=== PATIENT | female | born 1950 | race Caucasian/White ===

== ENCOUNTER 2017-04-14 17:01 | Inpatient (IN) | payer MEDICARE, MEDICAID ==
[~2017-04-14] VITALS: Ht 172.7 cm; Wt 114.0 kg
[2017-04-14] MEDS ORDERED: SODIUM CHLORIDE 0.9% 1,000 ML IV ONE (18:33)
[2017-04-14 19:35] LABS: Basophils # (auto) 0.1 uL; Eosinophils # (auto) 0.3 uL; Eosinophils % (auto) 2.4 % (0.0-7.0); Lymphocytes # (auto) 1.9 uL; Monocytes # (auto) 0.6 uL; Nucleated Red Blood Cells % 0.1 %; Red Cell Distribution Width 14.1 % (11.8-14.3)
[2017-04-14 19:42] LABS: Basophils % (auto) 0.8 % (0.0-2.0); Hematocrit 42.5 % (36.0-46.0); Hemoglobin 13.7 g/dL (12.2-16.2); Lymphocytes % (auto) 14.9 % (10.0-50.0); Mean Corpuscular Hgb Conc. 32.4 g/dL (32.0-36.0); Mean Corpuscular Volume 95.9 fL (80.0-100.0); Monocytes % (auto) 4.4 % (0.0-12.0); Neutrophils # (auto) 9.8 uL; Neutrophils % (auto) 77.5 % (37.0-80.0); Platelet Count (auto) 315 10^3/uL (140-450); Red Blood Cells 4.43 10^6/uL (4.0-5.20); White Blood Cell 12.7 10^3/uL (4.4-10.8)
[2017-04-14 19:55] LABS: Alanine Aminotransferase 29 U/L (13-56); Albumin 3.4 g/dL (3.4-5.0); Alkaline Phosphatase 82 U/L (45-117); Anion Gap 10 (5-15); Aspartate Aminotransferase 15 U/L (15-37); Bilirubin, Total 0.6 mg/dL (0.2-1.0); Blood Urea Nitrogen 18 mg/dL (7-18); Calcium 8.3 mg/dL (8.5-10.1); Carbon Dioxide 26 mmol/L (21-32); Chloride 103 mmol/L (98-107); GFR African American 80 mL/min; GFR Non-African American 66 mL/min; Glucose 188 mg/dL (74-106); Magnesium 1.8 mg/dL (1.6-2.6); Potassium 4.3 mmol/L (3.5-5.1); Sodium 139 mmol/L (136-145); Total Protein 7.4 g/dL (6.4-8.2)
[2017-04-14] MEDS ORDERED: LORazepam 2MG/ML-1ML VIAL IV ONE (20:30)
[2017-04-14] MEDS ORDERED: LEVOFLOXACIN 500MG 100 ML IV ONE (20:45)
[2017-04-14 21:38] LABS: Lactic Acid w/Reflex 2.3 mmol/L (0.4-2.0)
[2017-04-14] MEDS ORDERED: LACTULOSE 20Gm/30ML SOLN PO PRN (21:45)
[2017-04-14] MEDS ORDERED: ONDANSETRON HCL 4 MG/2 ML VIAL IV PRN ×2 (21:45)
[2017-04-14] MEDS: traZODone HCL 50 MG TAB PO SCH (22:00)
[2017-04-14] MEDS: ATORVASTATIN 20 MG TAB PO SCH (22:00)
[2017-04-14] MEDS: METOPROLOL TARTRATE 50 MG TAB PO SCH (22:00)
[2017-04-14 22:20] LABS: Cholesterol 145 mg/dL (< 200); HDL Cholesterol 39 mg/dL (40-59); LDL Cholesterol 100 mg/dL (< 100); Triglycerides 112 mg/dL (< 150)
[2017-04-14 23:28] LABS: Urine Bacteria NONE SEEN /hpf (None Seen); Urine Blood 1+ /uL (Negative); Urine Mucus FEW (None Seen); Urine Specific Gravity 1.023 (1.001-1.035); Urine WBC <1 /hpf (0 - 5)
[2017-04-14 23:51] LABS: INR 0.96 (0.9-1.15); Partial Thromboplastin Time 28.8 sec (22.64-33.71); Prothrombin Time 10.5 sec (9.37-12.3)
[2017-04-15] MEDS: AZITHROMYCIN 500MG/ 250ML 250 ML IV SCH (02:25)
[2017-04-15] MEDS: clonazePAM 0.5 MG TAB PO PRN (02:27)
[2017-04-15] MEDS: HYDROcodone-ACET 5/325MG TAB PO PRN ×2 (07:34→21:49)
[2017-04-15 08:40] LABS: Basophils # (auto) 0.1 uL; Basophils % (auto) 0.6 % (0.0-2.0); Eosinophils # (auto) 0.1 uL; Eosinophils % (auto) 0.4 % (0.0-7.0); Hematocrit 39.8 % (36.0-46.0); Hemoglobin 13.4 g/dL (12.2-16.2); Lymphocytes # (auto) 2.1 uL; Lymphocytes % (auto) 17.4 % (10.0-50.0); Mean Corpuscular Hemoglobin 31.8 pg (28.0-32.0); Mean Corpuscular Hgb Conc. 33.6 g/dL (32.0-36.0); Mean Corpuscular Volume 94.6 fL (80.0-100.0); Monocytes # (auto) 0.8 uL; Monocytes % (auto) 6.7 % (0.0-12.0); Neutrophils % (auto) 74.9 % (37.0-80.0); Nucleated Red Blood Cells % 0.1 %; Platelet Count (auto) 301 10^3/uL (140-450); Red Blood Cells 4.21 10^6/uL (4.0-5.20)
[2017-04-15 08:58] LABS: BUN/Creatinine Ratio 25.7; Calcium 8.3 mg/dL (8.5-10.1); Potassium 3.7 mmol/L (3.5-5.1)
[2017-04-15 09:00] VITALS: BP 125/62
[2017-04-15] MEDS ORDERED: HYDR-392 PO (09:59)
[2017-04-15] MEDS ORDERED: METO-5 PO (09:59)
[2017-04-15] MEDS ORDERED: LEVO125T7 PO (09:59)
[2017-04-15] MEDS ORDERED: METF-370 PO (09:59)
[2017-04-15] MEDS: FLUoxetine HCL 20 MG CAP PO SCH (10:00)
[2017-04-15] MEDS: ENOXAPARIN SOD 40 MG/0.4 ML SYRINGE SC SCH (10:32)
[2017-04-15] MEDS: ASPirin 81 mg TAB PO SCH (10:32)
[2017-04-15] MEDS: METOPROLOL TARTRATE 50 MG TAB PO SCH ×2 (10:33→21:49)
[2017-04-15] MEDS: ACETAMINOPHEN 500 MG TAB PO PRN (10:33)
[2017-04-15] MEDS: lamoTRIgine 25 MG TAB PO SCH (10:33)
[2017-04-15 13:00] VITALS: BP 103/53
[2017-04-15] MEDS ORDERED: LORazepam 2MG/ML-1ML VIAL IV ONE (13:45)
[2017-04-15] MEDS ORDERED: DEXTROSE (50%) 50ML SYRG IV PRN (14:00)
[2017-04-15] MEDS ORDERED: LEVOFLOXACIN 750MG 150 ML IV ONE (14:00)
[2017-04-15] MEDS: LEVOTHYROXINE SODIUM 50 MCG TAB PO SCH (14:15)
[2017-04-15 16:50] VITALS: BP 115/64
[2017-04-15] MEDS: InsuLIN REG 1unit/0.01ml Soln (100units/ml) SC SCH ×2 (17:00→21:50)
[2017-04-15] MEDS ORDERED: ALBUTEROL SULF 2.5 MG/0.5ML(0.5%) NEB SOLN NEB PRN (18:15)
[2017-04-15] MEDS: ACCU-CHEK COMFORT CURVE STRIP VI SCH ×2 (18:25→21:50)
[2017-04-15 19:36] VITALS: BP 115/64
[2017-04-15] MEDS: ALBUTEROL SULF 2.5 MG/0.5ML(0.5%) NEB SOLN NEB SCH (21:48)
[2017-04-15] MEDS: ATORVASTATIN 20 MG TAB PO SCH (21:48)
[2017-04-15] MEDS: traZODone HCL 50 MG TAB PO SCH (21:48)
[2017-04-15 22:00] VITALS: BP 103/49
[2017-04-16] VITALS (11 sets, daily range): BP systolic 90–119; BP diastolic 43–62
[2017-04-16] MEDS: AZITHROMYCIN 500MG/ 250ML 250 ML IV SCH (01:50)
[2017-04-16 05:31] LABS: Basophils # (auto) 0.1 uL; Basophils % (auto) 0.9 % (0.0-2.0); Eosinophils # (auto) 0.1 uL; Eosinophils % (auto) 0.9 % (0.0-7.0); Hemoglobin 13.4 g/dL (12.2-16.2); Lymphocytes # (auto) 2.5 uL; Lymphocytes % (auto) 17.8 % (10.0-50.0); Mean Corpuscular Hemoglobin 31.9 pg (28.0-32.0); Mean Corpuscular Hgb Conc. 33.5 g/dL (32.0-36.0); Mean Corpuscular Volume 95.2 fL (80.0-100.0); Monocytes # (auto) 1.3 uL; Monocytes % (auto) 9.5 % (0.0-12.0); Neutrophils % (auto) 70.9 % (37.0-80.0); Platelet Count (auto) 214 10^3/uL (140-450); Red Cell Distribution Width 14.2 % (11.8-14.3); White Blood Cell 14.1 10^3/uL (4.4-10.8)
[2017-04-16 05:55] LABS: BUN/Creatinine Ratio 19.1; Magnesium 2.1 mg/dL (1.6-2.6); Potassium 3.7 mmol/L (3.5-5.1)
[2017-04-16] MEDS: ACCU-CHEK COMFORT CURVE STRIP VI SCH ×4 (06:01→22:06)
[2017-04-16] MEDS: LEVOTHYROXINE SODIUM 50 MCG TAB PO SCH (06:01)
[2017-04-16] MEDS: InsuLIN REG 1unit/0.01ml Soln (100units/ml) SC SCH ×4 (06:01→22:07)
[2017-04-16] MEDS: ALBUTEROL SULF 2.5 MG/0.5ML(0.5%) NEB SOLN NEB SCH ×3 (06:53→22:32)
[2017-04-16] MEDS: ACETAMINOPHEN 500 MG TAB PO PRN ×2 (08:04→22:00)
[2017-04-16] MEDS: LEVOFLOXACIN 750MG 150 ML IV SCH (10:19)
[2017-04-16] MEDS: FLUoxetine HCL 20 MG CAP PO SCH (10:19)
[2017-04-16] MEDS: METOPROLOL TARTRATE 50 MG TAB PO SCH ×2 (10:20→22:07)
[2017-04-16] MEDS: ASPirin 81 mg TAB PO SCH (10:20)
[2017-04-16] MEDS: lamoTRIgine 25 MG TAB PO SCH (10:20)
[2017-04-16] MEDS: ENOXAPARIN SOD 40 MG/0.4 ML SYRINGE SC SCH (10:20)
[2017-04-16] MEDS: clonazePAM 0.5 MG TAB PO PRN (11:30)
[2017-04-16] MEDS: HYDROcodone-ACET 5/325MG TAB PO PRN (19:00)
[2017-04-16] MEDS: ATORVASTATIN 20 MG TAB PO SCH (22:06)
[2017-04-16] MEDS: traZODone HCL 50 MG TAB PO SCH (22:06)
[2017-04-17] VITALS (37 sets, daily range): BP systolic 95–133; BP diastolic 45–71
[2017-04-17 04:40] LABS: Basophils # (auto) 0 uL; Basophils % (auto) 0.3 % (0.0-2.0); Eosinophils # (auto) 0.1 uL; Eosinophils % (auto) 0.7 % (0.0-7.0); Hematocrit 38.6 % (36.0-46.0); Hemoglobin 12.8 g/dL (12.2-16.2); Lymphocytes # (auto) 2.3 uL; Lymphocytes % (auto) 18.4 % (10.0-50.0); Mean Corpuscular Hemoglobin 31.8 pg (28.0-32.0); Mean Corpuscular Hgb Conc. 33.2 g/dL (32.0-36.0); Mean Corpuscular Volume 95.7 fL (80.0-100.0); Monocytes # (auto) 1.3 uL; Monocytes % (auto) 10.3 % (0.0-12.0); Neutrophils # (auto) 8.6 uL; Neutrophils % (auto) 70.3 % (37.0-80.0); Nucleated Red Blood Cells % 0.1 %; Platelet Count (auto) 273 10^3/uL (140-450); Red Blood Cells 4.04 10^6/uL (4.0-5.20); Red Cell Distribution Width 14.2 % (11.8-14.3); White Blood Cell 12.3 10^3/uL (4.4-10.8)
[2017-04-17 05:29] LABS: Albumin 2.9 g/dL (3.4-5.0); BUN/Creatinine Ratio 10.6; Bilirubin, Total 0.9 mg/dL (0.2-1.0); Calcium 8.1 mg/dL (8.5-10.1); Total Protein 6.9 g/dL (6.4-8.2)
[2017-04-17] MEDS: ALBUTEROL SULF 2.5 MG/0.5ML(0.5%) NEB SOLN NEB SCH ×3 (06:33→22:48)
[2017-04-17] MEDS: LEVOTHYROXINE SODIUM 50 MCG TAB PO SCH (07:08)
[2017-04-17] MEDS: ACCU-CHEK COMFORT CURVE STRIP VI SCH ×4 (07:08→22:30)
[2017-04-17] MEDS: InsuLIN REG 1unit/0.01ml Soln (100units/ml) SC SCH ×4 (07:30→22:30)
[2017-04-17] MEDS ORDERED: IV IMM GLOBULIN(IVIG)10%20G/200ML IV SCH (10:00)
[2017-04-17] MEDS: METOPROLOL TARTRATE 50 MG TAB PO SCH ×2 (10:00→22:30)
[2017-04-17] MEDS: ENOXAPARIN SOD 40 MG/0.4 ML SYRINGE SC SCH (10:58)
[2017-04-17] MEDS: FLUoxetine HCL 20 MG CAP PO SCH (10:58)
[2017-04-17] MEDS: lamoTRIgine 25 MG TAB PO SCH (10:58)
[2017-04-17] MEDS: LEVOFLOXACIN 750MG 150 ML IV SCH (10:58)
[2017-04-17] MEDS: ASPirin 81 mg TAB PO SCH (10:59)
[2017-04-17] MEDS: ACETAMINOPHEN 500 MG TAB PO PRN (15:10)
[2017-04-17] MEDS: clonazePAM 0.5 MG TAB PO PRN (19:40)
[2017-04-17] MEDS: traZODone HCL 50 MG TAB PO SCH (22:30)
[2017-04-17] MEDS: ATORVASTATIN 20 MG TAB PO SCH (22:30)
[2017-04-18] VITALS (48 sets, daily range): BP systolic 86–145; BP diastolic 47–84
[2017-04-18] MEDS: ACETAMINOPHEN 500 MG TAB PO PRN (02:58)
[2017-04-18 04:26] LABS: Basophils # (auto) 0 uL; Basophils % (auto) 0.4 % (0.0-2.0); Eosinophils # (auto) 0.1 uL; Eosinophils % (auto) 0.7 % (0.0-7.0); Hematocrit 38.6 % (36.0-46.0); Hemoglobin 12.9 g/dL (12.2-16.2); Lymphocytes % (auto) 15.3 % (10.0-50.0); Mean Corpuscular Hemoglobin 31.8 pg (28.0-32.0); Mean Corpuscular Hgb Conc. 33.4 g/dL (32.0-36.0); Mean Corpuscular Volume 95.3 fL (80.0-100.0); Monocytes # (auto) 1.3 uL; Monocytes % (auto) 9.8 % (0.0-12.0); Neutrophils # (auto) 9.6 uL; Neutrophils % (auto) 73.8 % (37.0-80.0); Platelet Count (auto) 299 10^3/uL (140-450); Red Blood Cells 4.05 10^6/uL (4.0-5.20); Red Cell Distribution Width 13.8 % (11.8-14.3)
[2017-04-18 04:42] LABS: Albumin 2.6 g/dL (3.4-5.0); BUN/Creatinine Ratio 14.7; Calcium 8.2 mg/dL (8.5-10.1); Potassium 3.7 mmol/L (3.5-5.1)
[2017-04-18 04:51] LABS: Bilirubin, Total 0.9 mg/dL (0.2-1.0); Total Protein 7.1 g/dL (6.4-8.2)
[2017-04-18] MEDS: InsuLIN REG 1unit/0.01ml Soln (100units/ml) SC SCH ×4 (06:47→22:15)
[2017-04-18] MEDS: LEVOTHYROXINE SODIUM 50 MCG TAB PO SCH (06:47)
[2017-04-18] MEDS: ACCU-CHEK COMFORT CURVE STRIP VI SCH ×4 (06:47→22:15)
[2017-04-18] MEDS: ALBUTEROL SULF 2.5 MG/0.5ML(0.5%) NEB SOLN NEB SCH ×3 (07:23→22:36)
[2017-04-18] MEDS: clonazePAM 0.5 MG TAB PO PRN ×2 (09:06→21:12)
[2017-04-18] MEDS: LEVOFLOXACIN 750MG 150 ML IV SCH (09:15)
[2017-04-18] MEDS: FLUTICASONE PROP NASAL SPR 0.05 % (50MCG) 16GM EACHNOSTRI SCH (09:48)
[2017-04-18] MEDS: ENOXAPARIN SOD 40 MG/0.4 ML SYRINGE SC SCH (09:48)
[2017-04-18] MEDS: lamoTRIgine 25 MG TAB PO SCH (09:48)
[2017-04-18] MEDS: METOPROLOL TARTRATE 50 MG TAB PO SCH ×2 (09:48→22:15)
[2017-04-18] MEDS: FLUoxetine HCL 20 MG CAP PO SCH (09:48)
[2017-04-18] MEDS: ASPirin 81 mg TAB PO SCH (09:48)
[2017-04-18] MEDS: HYDROcodone-ACET 5/325MG TAB PO PRN (10:37)
[2017-04-18 11:04] LABS: INR 1.01 (0.9-1.15)
[2017-04-18] MEDS ORDERED: IV IMM GLOBULIN(IVIG)10%20G/200ML IV SCH (12:00)
[2017-04-18] MEDS: IV IMMUNE GLOBULIN 10% 200 ML IV SCH ×2 (12:13→13:00)
[2017-04-18] MEDS: traZODone HCL 50 MG TAB PO SCH (22:15)
[2017-04-18] MEDS: ATORVASTATIN 20 MG TAB PO SCH (22:15)
[2017-04-19] VITALS (32 sets, daily range): BP systolic 99–124; BP diastolic 39–69
[2017-04-19] MEDS: ACETAMINOPHEN 500 MG TAB PO PRN (03:50)
[2017-04-19] MEDS: InsuLIN REG 1unit/0.01ml Soln (100units/ml) SC SCH ×4 (06:44→21:44)
[2017-04-19] MEDS: ACCU-CHEK COMFORT CURVE STRIP VI SCH ×4 (06:44→21:43)
[2017-04-19] MEDS: LEVOTHYROXINE SODIUM 50 MCG TAB PO SCH (06:44)
[2017-04-19] MEDS: ALBUTEROL SULF 2.5 MG/0.5ML(0.5%) NEB SOLN NEB SCH ×3 (07:03→22:35)
[2017-04-19 07:06] LABS: Basophils # (auto) 0.1 uL; Basophils % (auto) 0.6 % (0.0-2.0); Eosinophils # (auto) 0.2 uL; Hematocrit 38.2 % (36.0-46.0); Hemoglobin 12.8 g/dL (12.2-16.2); Lymphocytes # (auto) 1.9 uL; Lymphocytes % (auto) 17.4 % (10.0-50.0); Mean Corpuscular Hemoglobin 31.9 pg (28.0-32.0); Mean Corpuscular Hgb Conc. 33.6 g/dL (32.0-36.0); Monocytes # (auto) 0.9 uL; Monocytes % (auto) 8.5 % (0.0-12.0); Neutrophils # (auto) 7.9 uL; Neutrophils % (auto) 71.5 % (37.0-80.0); Platelet Count (auto) 314 10^3/uL (140-450); Red Blood Cells 4.02 10^6/uL (4.0-5.20)
[2017-04-19 07:13] LABS: BUN/Creatinine Ratio 18.7; Calcium 8.4 mg/dL (8.5-10.1)
[2017-04-19] MEDS: FLUTICASONE PROP NASAL SPR 0.05 % (50MCG) 16GM EACHNOSTRI SCH (09:00)
[2017-04-19] MEDS: clonazePAM 0.5 MG TAB PO PRN (09:00)
[2017-04-19] MEDS: LEVOFLOXACIN 750MG 150 ML IV SCH (09:00)
[2017-04-19] MEDS: lamoTRIgine 25 MG TAB PO SCH (09:31)
[2017-04-19] MEDS: ENOXAPARIN SOD 40 MG/0.4 ML SYRINGE SC SCH (09:31)
[2017-04-19] MEDS: ASPirin 81 mg TAB PO SCH (09:31)
[2017-04-19] MEDS: METOPROLOL TARTRATE 50 MG TAB PO SCH ×2 (09:32→21:45)
[2017-04-19] MEDS: FLUoxetine HCL 20 MG CAP PO SCH (09:32)
[2017-04-19] MEDS: HYDROcodone-ACET 5/325MG TAB PO PRN (13:26)
[2017-04-19] MEDS ORDERED: IMMUNE GLOBULIN 10% IV SCH (14:30)
[2017-04-19] MEDS: traZODone HCL 50 MG TAB PO SCH (21:44)
[2017-04-19] MEDS: ATORVASTATIN 20 MG TAB PO SCH (21:45)
[2017-04-20] VITALS (11 sets, daily range): BP systolic 110–123; BP diastolic 55–63
[2017-04-20] MEDS: ACCU-CHEK COMFORT CURVE STRIP VI SCH (06:44)
[2017-04-20] MEDS: ALBUTEROL SULF 2.5 MG/0.5ML(0.5%) NEB SOLN NEB SCH (06:51)
[2017-04-20] MEDS: InsuLIN REG 1unit/0.01ml Soln (100units/ml) SC SCH (07:02)
[2017-04-20] MEDS: ACETAMINOPHEN 500 MG TAB PO PRN (07:02)
[2017-04-20] MEDS: LEVOTHYROXINE SODIUM 50 MCG TAB PO SCH (07:02)
[2017-04-20] MEDS: clonazePAM 0.5 MG TAB PO PRN (08:16)
[2017-04-20] MEDS: LEVOFLOXACIN 750MG 150 ML IV SCH (09:00)
[2017-04-20] MEDS ORDERED: IV IMMUNE GLOBULIN 10% 200 ML IV SCH (11:00)
== END 2017-04-20 10:50 | disposition short-term general hospital (02) | DRG 49 ==
LOC: ER 17:01 → TELE 17:02 → TELE-WESTW 04-15 08:55 → ICU WEST 04-16 18:10
PROVIDERS: ADMIT Nurse Practitioner Family; ATTEND Internal Medicine
DX: G61.0 Guillain-Barre syndrome (principal); I63.9 Cerebral infarction, unspecified; G82.50 Quadriplegia, unspecified; J18.1 Lobar pneumonia, unspecified organism; I11.9 Hypertensive heart disease without heart failure; E03.9 Hypothyroidism, unspecified; E11.9 Type 2 diabetes mellitus without complications; E66.9 Obesity, unspecified; F32.9 Major depressive disorder, single episode, unspecified; F41.9 Anxiety disorder, unspecified; G89.29 Other chronic pain; E78.00 Pure hypercholesterolemia, unspecified; M10.9 Gout, unspecified; Z79.82 Long term (current) use of aspirin; Z79.899 Other long term (current) drug therapy; Z80.0 Family history of malignant neoplasm of digestive organs; Z82.0 Family history of epilepsy and other diseases of the nervous system; Z82.3 Family history of stroke; Z82.49 Family history of ischemic heart disease and other diseases of the circulatory system; Z68.38 Body mass index [BMI] 38.0-38.9, adult
CPT/HCPCS: 36415; 36600; 51702; 70450; 70551; 71045; 72125; 80048; 80053; 80061; 81001; 82805; 82962; 83036; 83605; 83735; 83880; 84146; 84443; 84484; 85025; 85610; 85730; 87040; 87081; 93005; 93306; 93886; 94010; 94640; 94761; 96361; 96365; 96367; 96375; 99291; J1459; J1815; J1956

== ENCOUNTER 2020-01-15 18:46 | Inpatient (IN) | payer MEDICARE, MEDICAID ==
[~2020-01-15] VITALS: Ht 172.7 cm; Wt 112.0 kg
[~2020-01-15 18:46] MED LIST: HYDR-392 PO; LEVO125T7 PO; METF-370 PO; METO-5 PO
[2020-01-15] MEDS ORDERED: ACETAMINOPHEN 325 MG TAB PO ONE (19:45)
[2020-01-15 20:45] LABS: Basophils # (auto) 0 10 ^3/uL (0-0.2); Basophils % (auto) 0.3 % (0.0-2.0); Eosinophils # (auto) 0.1 10 ^3/uL (0-0.8); Eosinophils % (auto) 0.6 % (0.0-7.0); Hemoglobin 13.6 g/dL (12.2-16.2); Lymphocytes # (auto) 1.1 10 ^3/uL (0.4-5.4); Lymphocytes % (auto) 6.4 % (10.0-50.0); Mean Corpuscular Hgb Conc. 33.1 g/dL (32.0-36.0); Mean Corpuscular Volume 93.8 fL (80.0-100.0); Monocytes # (auto) 1.4 10 ^3/uL (0-1.3); Monocytes % (auto) 8.5 % (0.0-12.0); Neutrophils # (auto) 13.9 10 ^3/uL (1.6-8.6); Neutrophils % (auto) 84.2 % (37.0-80.0); Platelet Count (auto) 303 10^3/uL (140-450); Red Blood Cells 4.37 10^6/uL (4.0-5.20); Red Cell Distribution Width 13.9 % (11.8-14.3); White Blood Cell 16.6 10^3/uL (4.4-10.8)
[2020-01-15 21:02] LABS: INR 1.05 (0.9-1.15); Partial Thromboplastin Time 32.8 sec (23.0-31.2)
[2020-01-15 21:03] LABS: Albumin 3.4 g/dL (3.4-5.0); Anion Gap 9 (5-15); Blood Urea Nitrogen 13 mg/dL (7-18); Carbon Dioxide 25 mmol/L (21-32); Chloride 99 mmol/L (98-107); Glucose 141 mg/dL (74-106); Magnesium 1.3 mg/dL (1.6-2.6); Potassium 4.3 mmol/L (3.5-5.1); Sodium 133 mmol/L (136-145)
[2020-01-15 21:06] LABS: BUN/Creatinine Ratio 15.3; GFR African American 85 mL/min; GFR Non-African American 70 mL/min; Lactic Acid w/Reflex 2.5 mmol/L (0.4-2.0)
[2020-01-15 21:11] LABS: Alanine Aminotransferase 26 U/L (13-56); Alkaline Phosphatase 98 U/L (45-117); Aspartate Aminotransferase 20 U/L (15-37); Bilirubin, Total 0.8 mg/dL (0.2-1.0); Total Protein 7.5 g/dL (6.4-8.2)
[2020-01-15] MEDS ORDERED: ONDANSETRON HCL 4 MG/2 ML VIAL IV ONE (21:15)
[2020-01-15] MEDS ORDERED: MORPHINE SULFATE 4 MG/ML SYR/VIAL IV ONE (21:15)
[2020-01-15] MEDS ORDERED: levoFLOXacin 750MG 150 ML IV ONE (21:30)
[2020-01-15 22:47] LABS: Urine Bacteria MANY /hpf (None Seen); Urine Blood Negative /uL (Negative); Urine Mucus FEW (None Seen); Urine Specific Gravity 1.014 (1.001-1.035); Urine WBC 143 /hpf (0 - 5); Urine WBC Clumps PRESENT /hpf (None Seen)
[2020-01-15] MEDS ORDERED: ACETAMINOPHEN 325 MG TAB PO PRN (23:00)
[2020-01-15] MEDS ORDERED: NITROGLYCERIN 0.4 MG SL TAB SL PRN (23:00)
[2020-01-15] MEDS ORDERED: ONDANSETRON HCL 4 MG/2 ML VIAL IV PRN (23:00)
[2020-01-15] MEDS ORDERED: MORPHINE SULF INJ 2 MG/ML SYRINGE 1ML IV PRN (23:00)
[2020-01-16 00:14] LABS: CRP High Sensitivity 4.22 mg/dL (< 0.3)
[2020-01-16 01:11] VITALS: BP 99/54
[2020-01-16] MEDS: MAGNESIUM SULFATE 1GM/100ML 100 ML IV SCH ×2 (02:47→04:01)
[2020-01-16 03:01] VITALS: BP 99/58
[2020-01-16] MEDS ORDERED: METF-370 PO (03:55)
[2020-01-16] MEDS ORDERED: FLUO1TAB14 PO (03:55)
[2020-01-16] MEDS ORDERED: TRAZ-181 PO (03:55)
[2020-01-16] MEDS ORDERED: CLON0.5T10 PO (03:55)
[2020-01-16] MEDS ORDERED: ATOR20TA PO (03:55)
[2020-01-16] MEDS ORDERED: INSLANTI SC (03:55)
[2020-01-16] MEDS ORDERED: TAM04C PO (03:55)
[2020-01-16 05:00] VITALS: BP 109/71
[2020-01-16] MEDS: LEVOTHYROXINE SODIUM 50 MCG TAB PO SCH (06:11)
[2020-01-16 06:23] LABS: Basophils # (auto) 0 10 ^3/uL (0-0.2); Basophils % (auto) 0.3 % (0.0-2.0); Eosinophils # (auto) 0.1 10 ^3/uL (0-0.8); Eosinophils % (auto) 0.5 % (0.0-7.0); Hematocrit 39.7 % (36.0-46.0); Lymphocytes # (auto) 2.1 10 ^3/uL (0.4-5.4); Lymphocytes % (auto) 19.2 % (10.0-50.0); Mean Corpuscular Hemoglobin 30.8 pg (28.0-32.0); Mean Corpuscular Hgb Conc. 32.8 g/dL (32.0-36.0); Mean Corpuscular Volume 94.1 fL (80.0-100.0); Monocytes % (auto) 9.1 % (0.0-12.0); Neutrophils # (auto) 7.9 10 ^3/uL (1.6-8.6); Neutrophils % (auto) 70.9 % (37.0-80.0); Platelet Count (auto) 277 10^3/uL (140-450); Red Blood Cells 4.22 10^6/uL (4.0-5.20); Red Cell Distribution Width 13.7 % (11.8-14.3); White Blood Cell 11.1 10^3/uL (4.4-10.8)
[2020-01-16 06:47] LABS: Potassium 3.8 mmol/L (3.5-5.1)
[2020-01-16 06:59] LABS: Albumin 3.3 g/dL (3.4-5.0); BUN/Creatinine Ratio 13.7; Bilirubin, Total 0.8 mg/dL (0.2-1.0); Calcium 8.7 mg/dL (8.5-10.1); Total Protein 6.9 g/dL (6.4-8.2)
[2020-01-16 09:00] VITALS: BP 114/69
[2020-01-16] MEDS ORDERED: CHOLECALCIFEROL (VITD3) 2,000 UNIT CAP PO SCH (10:00)
[2020-01-16] MEDS ORDERED: DexAMETHasone SOD PHOS 10MG/1ML VIAL INJ IV SCH (10:00)
[2020-01-16] MEDS ORDERED: ENOXAPARIN SOD 40 MG/0.4 ML SYRINGE SC SCH (10:00)
[2020-01-16] MEDS ORDERED: ZINC SULFATE 220mg CAP or TAB PO SCH (10:00)
[2020-01-16] MEDS: METOPROLOL TARTRATE 50 MG TAB PO SCH ×2 (10:00→22:00)
[2020-01-16] MEDS ORDERED: HYDROcodone-ACET 5/325MG TAB PO PRN (10:30)
[2020-01-16] MEDS ORDERED: LORazepam 0.5 MG TAB PO PRN (10:30)
[2020-01-16] MEDS: DOXYCYCLINE 100MG/250ML 250 ML IV SCH ×2 (10:38→22:08)
[2020-01-16] MEDS: FAMOTIDINE 20 MG TAB PO SCH ×2 (10:40→22:08)
[2020-01-16] MEDS: ASCORBIC ACID 1,000 MG TAB PO SCH (10:43)
[2020-01-16] MEDS: ENOXAPARIN SOD 40 MG/0.4 ML SYRINGE SC SCH (10:45)
[2020-01-16] MEDS ORDERED: DEXTROSE (50%) 50ML SYRG IV PRN (11:15)
[2020-01-16] MEDS: ACCU-CHEK COMFORT CURVE STRIP VI SCH ×3 (11:30→22:08)
[2020-01-16] MEDS: InsuLIN REG 1unit/0.01ml Soln (100units/ml) SC SCH ×3 (12:18→22:19)
[2020-01-16 13:32] LABS: Alcohol, Urine < 3.0 mg/dL (0-10); Amphetamine Screen, Urine NEGATIVE (NEGATIVE); Barbiturate Scree,Urine NEGATIVE (NEGATIVE); Benzodiazephine Screen, Urine NEGATIVE (NEGATIVE); Cannabinoid Screen, Urine NEGATIVE (NEGATIVE); Cocaine Screen, Urine NEGATIVE (NEGATIVE); Opiate Scree,Urine NEGATIVE (NEGATIVE); Phencyclidine Screen, Urine NEGATIVE (NEGATIVE)
[2020-01-16] MEDS ORDERED: IOHEXOL 350 MG/ML 100ML IJ ONE ×2 (13:39→17:48)
[2020-01-16] MEDS: clonazePAM 0.5 MG TAB PO PRN (14:19)
[2020-01-16 22:00] VITALS: BP 115/63
[2020-01-16] MEDS: TEMAZEPAM 15 MG CAP PO PRN (22:18)
[2020-01-17 05:00] VITALS: BP 105/58
[2020-01-17 06:04] LABS: Potassium 4.1 mmol/L (3.5-5.1)
[2020-01-17 06:12] LABS: BUN/Creatinine Ratio 12.8; Calcium 8.6 mg/dL (8.5-10.1)
[2020-01-17] MEDS: ACCU-CHEK COMFORT CURVE STRIP VI SCH ×4 (06:13→22:47)
[2020-01-17] MEDS: LEVOTHYROXINE SODIUM 50 MCG TAB PO SCH (06:14)
[2020-01-17 06:20] LABS: Basophils # (auto) 0.1 10 ^3/uL (0-0.2); Basophils % (auto) 0.8 % (0.0-2.0); Eosinophils # (auto) 0 10 ^3/uL (0-0.8); Eosinophils % (auto) 0.3 % (0.0-7.0); Hematocrit 38.4 % (36.0-46.0); Hemoglobin 12.7 g/dL (12.2-16.2); Lymphocytes # (auto) 2.6 10 ^3/uL (0.4-5.4); Lymphocytes % (auto) 21.7 % (10.0-50.0); Mean Corpuscular Volume 93.9 fL (80.0-100.0); Monocytes # (auto) 1.1 10 ^3/uL (0-1.3); Monocytes % (auto) 9.2 % (0.0-12.0); Neutrophils # (auto) 8.2 10 ^3/uL (1.6-8.6); Nucleated Red Blood Cells % 0.1 %; Platelet Count (auto) 302 10^3/uL (140-450); Red Blood Cells 4.09 10^6/uL (4.0-5.20); Red Cell Distribution Width 13.3 % (11.8-14.3)
[2020-01-17] MEDS: InsuLIN REG 1unit/0.01ml Soln (100units/ml) SC SCH ×4 (06:28→22:48)
[2020-01-17 08:00] VITALS: BP 106/63
[2020-01-17 09:00] VITALS: BP 109/63
[2020-01-17] MEDS: FAMOTIDINE 20 MG TAB PO SCH ×2 (09:39→22:47)
[2020-01-17] MEDS: DOXYCYCLINE 100MG/250ML 250 ML IV SCH (09:39)
[2020-01-17] MEDS: ENOXAPARIN SOD 40 MG/0.4 ML SYRINGE SC SCH (09:40)
[2020-01-17] MEDS: clonazePAM 0.5 MG TAB PO PRN (09:53)
[2020-01-17] MEDS: METOPROLOL TARTRATE 50 MG TAB PO SCH ×2 (10:00→22:00)
[2020-01-17] MEDS: ASCORBIC ACID 1,000 MG TAB PO SCH (10:00)
[2020-01-17] MEDS ORDERED: CHOLECALCIFEROL (VITD3) 2,000 UNIT CAP PO ONE (12:15)
[2020-01-17 13:00] VITALS: BP 129/62
[2020-01-17] MEDS ORDERED: CHOLECALCIFEROL (VITD3) 1,000UNIT=25mCg TAB PO ONE (15:45)
[2020-01-17] MEDS ORDERED: cefTRIAXone 1GM/50ML D5W 50 ML IV ONE (16:30)
[2020-01-17 17:00] VITALS: BP 117/74
[2020-01-17 22:00] VITALS: BP 116/60
[2020-01-17] MEDS ORDERED: traZODone HCL 50 MG TAB PO SCH (22:00)
[2020-01-17] MEDS ORDERED: ATORVASTATIN 20 MG TAB PO SCH (22:00)
[2020-01-17] MEDS: TEMAZEPAM 15 MG CAP PO PRN (22:54)
[2020-01-18 05:00] VITALS: BP 98/68
[2020-01-18] MEDS: LEVOTHYROXINE SODIUM 50 MCG TAB PO SCH (06:09)
[2020-01-18] MEDS: ACCU-CHEK COMFORT CURVE STRIP VI SCH ×2 (06:10→11:36)
[2020-01-18] MEDS: InsuLIN REG 1unit/0.01ml Soln (100units/ml) SC SCH ×2 (06:11→11:39)
[2020-01-18 06:58] LABS: Basophils # (auto) 0 10 ^3/uL (0-0.2); Basophils % (auto) 0.4 % (0.0-2.0); Eosinophils # (auto) 0.2 10 ^3/uL (0-0.8); Eosinophils % (auto) 2.2 % (0.0-7.0); Hematocrit 40.9 % (36.0-46.0); Hemoglobin 13.5 g/dL (12.2-16.2); Lymphocytes # (auto) 2.1 10 ^3/uL (0.4-5.4); Lymphocytes % (auto) 19.3 % (10.0-50.0); Monocytes % (auto) 8.8 % (0.0-12.0); Neutrophils # (auto) 7.7 10 ^3/uL (1.6-8.6); Neutrophils % (auto) 69.3 % (37.0-80.0); Platelet Count (auto) 314 10^3/uL (140-450); Red Blood Cells 4.36 10^6/uL (4.0-5.20); Red Cell Distribution Width 13.5 % (11.8-14.3); White Blood Cell 11.1 10^3/uL (4.4-10.8)
[2020-01-18 07:14] LABS: Calcium 8.6 mg/dL (8.5-10.1); Potassium 3.8 mmol/L (3.5-5.1)
[2020-01-18 07:16] LABS: Magnesium 2.1 mg/dL (1.6-2.6)
[2020-01-18 08:40] VITALS: BP 139/71
[2020-01-18] MEDS ORDERED: cefTRIAXone 1GM/50ML D5W 50 ML IV SCH (09:00)
[2020-01-18] MEDS ORDERED: CHOLECALCIFEROL (VITD3) 1,000UNIT=25mCg TAB PO SCH (10:00)
[2020-01-18] MEDS: METOPROLOL TARTRATE 50 MG TAB PO SCH (10:00)
[2020-01-18] MEDS ORDERED: ASCORBIC ACID 500 MG TAB PO SCH (10:00)
[2020-01-18] MEDS: ENOXAPARIN SOD 40 MG/0.4 ML SYRINGE SC SCH (10:18)
[2020-01-18] MEDS: FAMOTIDINE 20 MG TAB PO SCH (10:18)
[2020-01-18] MEDS ORDERED: LEVO500T21 PO (11:41)
[2020-01-18 12:31] VITALS: BP 116/60
[2020-01-18 13:00] VITALS: BP 123/67
== END 2020-01-18 14:25 | disposition home health service (06) | DRG 720 ==
LOC: ER 18:46 → EDBD 18:46 → TELE 18:47 → TELE-EAST 23:49 → TELE-WESTW 01-16 12:43
PROVIDERS: ADMIT Nurse Practitioner; ATTEND Internal Medicine
DX: A41.9 Sepsis, unspecified organism (principal); N39.0 Urinary tract infection, site not specified; I10 Essential (primary) hypertension; E78.5 Hyperlipidemia, unspecified; E03.9 Hypothyroidism, unspecified; M10.9 Gout, unspecified; F41.9 Anxiety disorder, unspecified; I70.0 Atherosclerosis of aorta; K44.9 Diaphragmatic hernia without obstruction or gangrene; E11.9 Type 2 diabetes mellitus without complications; Z20.828 Contact with and (suspected) exposure to other viral communicable diseases; Z79.84 Long term (current) use of oral hypoglycemic drugs; Z82.3 Family history of stroke; Z79.899 Other long term (current) drug therapy; Z80.0 Family history of malignant neoplasm of digestive organs; Z80.9 Family history of malignant neoplasm, unspecified; Z82.0 Family history of epilepsy and other diseases of the nervous system; Z82.49 Family history of ischemic heart disease and other diseases of the circulatory system; B96.20 Unspecified Escherichia coli [E. coli] as the cause of diseases classified elsewhere; J98.11 Atelectasis; Z86.69 Personal history of other diseases of the nervous system and sense organs
CPT/HCPCS: 36415; 71045; 71275; 80048; 80053; 80061; 80307; 81001; 82728; 82962; 83036; 83605; 83615; 83735; 83880; 84443; 84484; 85025; 85379; 85610; 85730; 86141; 87040; 87086; 87088; 87186; 87426; 93005; 96365; 96367; 96375; 97163; G0378; J0696; J1100; J1815; J1956; J2405; J3490

== ENCOUNTER 2021-11-12 17:47 | Emergency (ER) | payer MEDICARE, MEDICAID ==
[~2021-11-12] VITALS: Ht 172.7 cm; Wt 220.0 kg
[~2021-11-12 17:47] MED LIST changes: +ATOR20TA PO; +CLON0.5T10 PO; +FLUO1TAB14 PO; +INSLANTI SC; +LEVO500T31 PO; -METO-5 PO; +TAM04C PO; +TRAZ-181 PO
[2021-11-12] MEDS ORDERED: SODIUM CHLORIDE 0.9% 1,000 ML IV ONE ×2 (18:30)
[2021-11-12 18:50] LABS: Basophils # (auto) 0.1 10 ^3/uL (0-0.2); Basophils % (auto) 0.4 % (0.0-2.0); Eosinophils # (auto) 0.3 10 ^3/uL (0-0.8); Eosinophils % (auto) 1.9 % (0.0-7.0); Hematocrit 46.7 % (36.0-46.0); Hemoglobin 14.7 g/dL (12.2-16.2); Lymphocytes # (auto) 2.2 10 ^3/uL (0.4-5.4); Lymphocytes % (auto) 15.3 % (10.0-50.0); Mean Corpuscular Hemoglobin 30.8 pg (28.0-32.0); Mean Corpuscular Hgb Conc. 31.6 g/dL (32.0-36.0); Mean Corpuscular Volume 97.3 fL (80.0-100.0); Monocytes # (auto) 0.8 10 ^3/uL (0-1.3); Monocytes % (auto) 5.6 % (0.0-12.0); Neutrophils # (auto) 11.1 10 ^3/uL (1.6-8.6); Neutrophils % (auto) 76.8 % (37.0-80.0); Red Cell Distribution Width 13.8 % (11.8-14.3); White Blood Cell 14.4 10^3/uL (4.4-10.8)
[2021-11-12 19:42] LABS: Anion Gap 15 (5-15); Blood Urea Nitrogen 14 mg/dL (7-18); Carbon Dioxide 20 mmol/L (21-32); Chloride 101 mmol/L (98-107); Glucose 142 mg/dL (74-106); Potassium 4.6 mmol/L (3.5-5.1); Sodium 136 mmol/L (136-145)
[2021-11-12 19:43] LABS: Alanine Aminotransferase 49 U/L (13-56); Albumin 3.5 g/dL (3.4-5.0); Alkaline Phosphatase 82 U/L (45-117); Aspartate Aminotransferase 48 U/L (15-37); BUN/Creatinine Ratio 14.1; Bilirubin, Total 0.8 mg/dL (0.2-1.0); Calcium 8.1 mg/dL (8.5-10.1); GFR African American 71 mL/min; GFR Non-African American 58 mL/min; Magnesium 1.9 mg/dL (1.6-2.6)
[2021-11-12] MEDS ORDERED: ACETAMINOPHEN 325 MG TAB PO ONE (20:15)
[2021-11-12 21:19] VITALS: BP 117/61
== END 2021-11-12 22:19 | disposition home or self-care (01) ==
LOC: EDUNIT# 17:47 → EDBD 17:47 → ER 17:47
DX: I95.9 Hypotension, unspecified (principal); G90.9 Disorder of the autonomic nervous system, unspecified; I10 Essential (primary) hypertension; E11.9 Type 2 diabetes mellitus without complications; M10.9 Gout, unspecified; Z79.4 Long term (current) use of insulin; Z79.2 Long term (current) use of antibiotics; Z79.899 Other long term (current) drug therapy
CPT/HCPCS: 36415; 71045; 80053; 83735; 84484; 85025; 93005; 96360; 99285; J7030

== ENCOUNTER 2021-11-17 17:52 | Inpatient (IN) | payer MEDICARE, MEDICAID ==
[~2021-11-17] VITALS: Ht 172.7 cm; Wt 120.0 kg
[2021-11-17 22:31] LABS: Basophils # (auto) 0 10 ^3/uL (0-0.2); Basophils % (auto) 0.3 % (0.0-2.0); Eosinophils # (auto) 0.1 10 ^3/uL (0-0.8); Eosinophils % (auto) 0.7 % (0.0-7.0); Hematocrit 45.2 % (36.0-46.0); Hemoglobin 14.6 g/dL (12.2-16.2); Lymphocytes # (auto) 2.1 10 ^3/uL (0.4-5.4); Lymphocytes % (auto) 16.4 % (10.0-50.0); Mean Corpuscular Hemoglobin 30.7 pg (28.0-32.0); Mean Corpuscular Hgb Conc. 32.2 g/dL (32.0-36.0); Mean Corpuscular Volume 95.3 fL (80.0-100.0); Monocytes # (auto) 0.7 10 ^3/uL (0-1.3); Monocytes % (auto) 5.5 % (0.0-12.0); Neutrophils # (auto) 9.7 10 ^3/uL (1.6-8.6); Neutrophils % (auto) 77.1 % (37.0-80.0); Nucleated Red Blood Cells % 0.1 %; Red Blood Cells 4.74 10^6/uL (4.0-5.20); Red Cell Distribution Width 13.6 % (11.8-14.3); White Blood Cell 12.6 10^3/uL (4.4-10.8)
[2021-11-17 23:05] LABS: Albumin 3.5 g/dL (3.4-5.0); Calcium 8.9 mg/dL (8.5-10.1); Lactic Acid w/Reflex 2.6 mmol/L (0.4-2.0); Potassium 4.3 mmol/L (3.5-5.1)
[2021-11-17 23:09] LABS: BUN/Creatinine Ratio 16.3; Magnesium 1.7 mg/dL (1.6-2.6)
[2021-11-17 23:11] LABS: Bilirubin, Total 0.9 mg/dL (0.2-1.0); Total Protein 7.3 g/dL (6.4-8.2)
[2021-11-17] MEDS ORDERED: ACETAMINOPHEN 325 MG TAB PO ONE (23:45)
[2021-11-17] MEDS ORDERED: SODIUM CHLORIDE 0.9% 500 ML IV ONE (23:45)
[2021-11-18 00:06] LABS: Urine Bacteria MOD /hpf (None Seen); Urine Blood TRACE /uL (Negative); Urine Hyaline Cast MOD /lpf (0 - 2); Urine Mucus FEW (None Seen); Urine Specific Gravity 1.022 (1.001-1.035); Urine WBC 74 /hpf (0 - 5); Urine WBC Clumps PRESENT /hpf (None Seen)
[2021-11-18 00:18] LABS: Amphetamine Screen, Urine NEGATIVE (NEGATIVE); Barbiturate Scree,Urine NEGATIVE (NEGATIVE); Benzodiazephine Screen, Urine NEGATIVE (NEGATIVE); Cannabinoid Screen, Urine NEGATIVE (NEGATIVE); Cocaine Screen, Urine NEGATIVE (NEGATIVE); Opiate Scree,Urine NEGATIVE (NEGATIVE); Phencyclidine Screen, Urine NEGATIVE (NEGATIVE)
[2021-11-18] MEDS ORDERED: cefTRIAXone 1GM/50ML D5W 50 ML IV ONE (00:30)
[2021-11-18] MEDS ORDERED: ALBUMIN 5% 250 ML IV ONE (00:45)
[2021-11-18] MEDS ORDERED: MORPHINE SULFATE INJ 2 MG/ml SYRG IV PRN (00:45)
[2021-11-18] MEDS ORDERED: NITROGLYCERIN 0.4 MG SL TAB SL PRN (00:45)
[2021-11-18] MEDS ORDERED: ACETAMINOPHEN 325 MG TAB PO PRN (00:45)
[2021-11-18] MEDS ORDERED: DEXTROSE (50%) 50ML SYRG IV PRN (00:45)
[2021-11-18] MEDS: ONDANSETRON HCL 4 MG/2 ML VIAL IV PRN (02:00)
[2021-11-18] MEDS: LEVOTHYROXINE SODIUM 100 MCG TAB PO SCH (07:45)
[2021-11-18] MEDS: InsuLIN REG 1unit/0.01ml Soln (100units/ml) SC SCH ×4 (07:45→22:07)
[2021-11-18] MEDS: ACCU-CHEK COMFORT CURVE STRIP VI SCH ×4 (07:46→22:06)
[2021-11-18] MEDS: cefTRIAXone 1GM/50ML D5W 50 ML IV SCH (09:27)
[2021-11-18] MEDS ORDERED: PANTOPRAZOLE 40 MG TAB PO SCH (10:00)
[2021-11-18] MEDS: ENOXAPARIN SOD 40 MG/0.4 ML SYRINGE SC SCH (10:09)
[2021-11-18] MEDS: FLUoxetine HCL 20 MG CAP PO SCH (10:10)
[2021-11-18] MEDS: AZITHROMYCIN 500MG/ 250ML 250 ML IV SCH (10:10)
[2021-11-18] MEDS ORDERED: DOXYCYCLINE 100 MG TAB/CAP PO ONE (13:00)
[2021-11-18 17:00] VITALS: BP 108/45
[2021-11-18] MEDS ORDERED: HYDROcodone-ACET 5/325MG TAB PO PRN (20:45)
[2021-11-18] MEDS: clonazePAM 0.5 MG TAB PO PRN (20:53)
[2021-11-18 22:00] VITALS: BP 120/66
[2021-11-18] MEDS: ATORVASTATIN 20 MG TAB PO SCH (22:05)
[2021-11-18] MEDS: DOXYCYCLINE 100 MG TAB/CAP PO SCH (22:06)
[2021-11-19 05:00] VITALS: BP 133/67
[2021-11-19] MEDS: ACCU-CHEK COMFORT CURVE STRIP VI SCH ×4 (06:25→22:00)
[2021-11-19] MEDS: InsuLIN REG 1unit/0.01ml Soln (100units/ml) SC SCH ×4 (06:25→23:34)
[2021-11-19] MEDS: LEVOTHYROXINE SODIUM 100 MCG TAB PO SCH (06:27)
[2021-11-19] MEDS: cefTRIAXone 1GM/50ML D5W 50 ML IV SCH (08:37)
[2021-11-19 08:39] LABS: Basophils # (auto) 0.1 10 ^3/uL (0-0.2); Basophils % (auto) 0.7 % (0.0-2.0); Eosinophils # (auto) 0.3 10 ^3/uL (0-0.8); Eosinophils % (auto) 4.2 % (0.0-7.0); Hematocrit 41.2 % (36.0-46.0); Hemoglobin 13.6 g/dL (12.2-16.2); Lymphocytes # (auto) 1.9 10 ^3/uL (0.4-5.4); Lymphocytes % (auto) 23.8 % (10.0-50.0); Mean Corpuscular Hemoglobin 31.2 pg (28.0-32.0); Mean Corpuscular Hgb Conc. 32.9 g/dL (32.0-36.0); Mean Corpuscular Volume 94.7 fL (80.0-100.0); Monocytes # (auto) 0.7 10 ^3/uL (0-1.3); Monocytes % (auto) 8.2 % (0.0-12.0); Neutrophils # (auto) 5.2 10 ^3/uL (1.6-8.6); Neutrophils % (auto) 63.1 % (37.0-80.0); Red Blood Cells 4.35 10^6/uL (4.0-5.20); Red Cell Distribution Width 13.4 % (11.8-14.3); White Blood Cell 8.2 10^3/uL (4.4-10.8)
[2021-11-19 09:08] LABS: Albumin 3.3 g/dL (3.4-5.0); Calcium 8.5 mg/dL (8.5-10.1); Potassium 3.7 mmol/L (3.5-5.1)
[2021-11-19 09:13] LABS: BUN/Creatinine Ratio 11.9; Bilirubin, Total 1.2 mg/dL (0.2-1.0); Total Protein 6.9 g/dL (6.4-8.2)
[2021-11-19 09:20] VITALS: BP 123/56
[2021-11-19] MEDS: AZITHROMYCIN 500MG/ 250ML 250 ML IV SCH (10:49)
[2021-11-19] MEDS: clonazePAM 0.5 MG TAB PO PRN ×2 (10:49→23:35)
[2021-11-19] MEDS: FLUoxetine HCL 20 MG CAP PO SCH (10:49)
[2021-11-19] MEDS: ENOXAPARIN SOD 40 MG/0.4 ML SYRINGE SC SCH (10:50)
[2021-11-19] MEDS: DOXYCYCLINE 100 MG TAB/CAP PO SCH ×2 (10:50→21:11)
[2021-11-19 13:05] VITALS: BP 134/57
[2021-11-19 17:28] VITALS: BP 113/53
[2021-11-19] MEDS: ATORVASTATIN 20 MG TAB PO SCH (21:11)
[2021-11-19 21:38] VITALS: BP 115/58
[2021-11-20 04:54] VITALS: BP 124/44
[2021-11-20] MEDS: ACCU-CHEK COMFORT CURVE STRIP VI SCH ×4 (06:00→22:03)
[2021-11-20] MEDS: LEVOTHYROXINE SODIUM 100 MCG TAB PO SCH (06:02)
[2021-11-20] MEDS: InsuLIN REG 1unit/0.01ml Soln (100units/ml) SC SCH ×4 (06:14→22:04)
[2021-11-20] MEDS: cefTRIAXone 1GM/50ML D5W 50 ML IV SCH (08:58)
[2021-11-20] MEDS: FLUoxetine HCL 20 MG CAP PO SCH (08:58)
[2021-11-20] MEDS: ENOXAPARIN SOD 40 MG/0.4 ML SYRINGE SC SCH (08:59)
[2021-11-20] MEDS: DOXYCYCLINE 100 MG TAB/CAP PO SCH ×2 (08:59→22:03)
[2021-11-20 09:00] VITALS: BP 118/55
[2021-11-20] MEDS: AZITHROMYCIN 500MG/ 250ML 250 ML IV SCH (10:00)
[2021-11-20] MEDS: ONDANSETRON HCL 4 MG/2 ML VIAL IV PRN (11:22)
[2021-11-20] MEDS ORDERED: LACTULOSE 20Gm/30ML SOLN PO ONE (12:45)
[2021-11-20 13:00] VITALS: BP 118/52
[2021-11-20] MEDS: SODIUM CHLORIDE 0.9% 1,000 ML IV SCH ×2 (13:49→21:57)
[2021-11-20 17:00] VITALS: BP 123/53
[2021-11-20 17:05] LABS: Urine Bacteria NONE SEEN /hpf (None Seen); Urine Blood 1+ /uL (Negative); Urine Specific Gravity 1.005 (1.001-1.035); Urine WBC 1 /hpf (0 - 5)
[2021-11-20] MEDS: clonazePAM 0.5 MG TAB PO PRN (19:10)
[2021-11-20 22:00] VITALS: BP 124/61
[2021-11-20] MEDS: ATORVASTATIN 20 MG TAB PO SCH (22:03)
[2021-11-20] MEDS: LACTULOSE 20Gm/30ML SOLN PO SCH (22:03)
[2021-11-21 04:06] LABS: Basophils # (auto) 0 10 ^3/uL (0-0.2); Basophils % (auto) 0.4 % (0.0-2.0); Eosinophils # (auto) 0.2 10 ^3/uL (0-0.8); Eosinophils % (auto) 2.5 % (0.0-7.0); Hematocrit 41.7 % (36.0-46.0); Hemoglobin 13.8 g/dL (12.2-16.2); Lymphocytes # (auto) 2.4 10 ^3/uL (0.4-5.4); Mean Corpuscular Hemoglobin 31.4 pg (28.0-32.0); Mean Corpuscular Hgb Conc. 33.2 g/dL (32.0-36.0); Mean Corpuscular Volume 94.7 fL (80.0-100.0); Monocytes # (auto) 0.8 10 ^3/uL (0-1.3); Monocytes % (auto) 8.2 % (0.0-12.0); Neutrophils # (auto) 6.2 10 ^3/uL (1.6-8.6); Neutrophils % (auto) 63.9 % (37.0-80.0); Red Cell Distribution Width 13.7 % (11.8-14.3); White Blood Cell 9.7 10^3/uL (4.4-10.8)
[2021-11-21 04:19] LABS: Potassium 3.3 mmol/L (3.5-5.1)
[2021-11-21 04:31] LABS: Albumin 3.1 g/dL (3.4-5.0); BUN/Creatinine Ratio 8.5; Bilirubin, Total 0.8 mg/dL (0.2-1.0); Calcium 8.4 mg/dL (8.5-10.1); Total Protein 6.6 g/dL (6.4-8.2)
[2021-11-21 05:00] VITALS: BP 126/57
[2021-11-21] MEDS: InsuLIN REG 1unit/0.01ml Soln (100units/ml) SC SCH ×4 (06:33→22:00)
[2021-11-21] MEDS: LEVOTHYROXINE SODIUM 100 MCG TAB PO SCH (06:33)
[2021-11-21] MEDS: ACCU-CHEK COMFORT CURVE STRIP VI SCH ×4 (06:33→21:59)
[2021-11-21] MEDS: SODIUM CHLORIDE 0.9% 1,000 ML IV SCH ×3 (06:41→20:45)
[2021-11-21 08:10] VITALS: BP 103/64
[2021-11-21] MEDS: FLUoxetine HCL 20 MG CAP PO SCH (09:18)
[2021-11-21] MEDS: DOXYCYCLINE 100 MG TAB/CAP PO SCH ×2 (09:18→21:59)
[2021-11-21] MEDS: LACTULOSE 20Gm/30ML SOLN PO SCH (09:19)
[2021-11-21] MEDS: ENOXAPARIN SOD 40 MG/0.4 ML SYRINGE SC SCH (09:21)
[2021-11-21] MEDS: cefTRIAXone 1GM/50ML D5W 50 ML IV SCH (09:21)
[2021-11-21] MEDS: AZITHROMYCIN 500MG/ 250ML 250 ML IV SCH (10:35)
[2021-11-21] MEDS ORDERED: FLEET ENEMA(ADULT) 135 ML PR ONE (11:00)
[2021-11-21] MEDS: clonazePAM 0.5 MG TAB PO PRN (12:16)
[2021-11-21 12:43] VITALS: BP 109/59
[2021-11-21 17:10] VITALS: BP 113/77
[2021-11-21] MEDS ORDERED: POTASSIUM CHL 20 Meq TABLET PO ONE (20:45)
[2021-11-21] MEDS: ATORVASTATIN 20 MG TAB PO SCH (21:59)
[2021-11-21 22:00] VITALS: BP 147/64
[2021-11-22] MEDS: SODIUM CHLORIDE 0.9% 1,000 ML IV SCH ×2 (02:15→12:45)
[2021-11-22] MEDS: clonazePAM 0.5 MG TAB PO PRN (03:11)
[2021-11-22 05:00] VITALS: BP 124/61
[2021-11-22] MEDS: LEVOTHYROXINE SODIUM 100 MCG TAB PO SCH (06:23)
[2021-11-22] MEDS: ACCU-CHEK COMFORT CURVE STRIP VI SCH ×3 (06:23→17:00)
[2021-11-22] MEDS: InsuLIN REG 1unit/0.01ml Soln (100units/ml) SC SCH ×3 (06:26→17:00)
[2021-11-22 07:36] LABS: Albumin 2.9 g/dL (3.4-5.0); Potassium 3.8 mmol/L (3.5-5.1)
[2021-11-22 07:39] LABS: BUN/Creatinine Ratio 5.6; Bilirubin, Total 0.7 mg/dL (0.2-1.0); Total Protein 6.2 g/dL (6.4-8.2)
[2021-11-22 07:42] LABS: Basophils # (auto) 0.1 10 ^3/uL (0-0.2); Basophils % (auto) 0.6 % (0.0-2.0); Eosinophils # (auto) 0.2 10 ^3/uL (0-0.8); Eosinophils % (auto) 2.2 % (0.0-7.0); Hematocrit 39.9 % (36.0-46.0); Hemoglobin 13.1 g/dL (12.2-16.2); Lymphocytes # (auto) 2.1 10 ^3/uL (0.4-5.4); Mean Corpuscular Hemoglobin 30.8 pg (28.0-32.0); Mean Corpuscular Hgb Conc. 32.7 g/dL (32.0-36.0); Mean Corpuscular Volume 94.1 fL (80.0-100.0); Monocytes # (auto) 0.7 10 ^3/uL (0-1.3); Monocytes % (auto) 7.1 % (0.0-12.0); Neutrophils # (auto) 6.8 10 ^3/uL (1.6-8.6); Neutrophils % (auto) 69.1 % (37.0-80.0); Red Blood Cells 4.24 10^6/uL (4.0-5.20); Red Cell Distribution Width 13.4 % (11.8-14.3); White Blood Cell 9.8 10^3/uL (4.4-10.8)
[2021-11-22] MEDS: DOXYCYCLINE 100 MG TAB/CAP PO SCH (08:45)
[2021-11-22] MEDS: FLUoxetine HCL 20 MG CAP PO SCH (08:45)
[2021-11-22] MEDS: LACTULOSE 20Gm/30ML SOLN PO SCH (08:46)
[2021-11-22] MEDS: cefTRIAXone 1GM/50ML D5W 50 ML IV SCH (08:46)
[2021-11-22] MEDS: ENOXAPARIN SOD 40 MG/0.4 ML SYRINGE SC SCH (08:46)
[2021-11-22 09:00] VITALS: BP 124/80
[2021-11-22] MEDS: AZITHROMYCIN 500MG/ 250ML 250 ML IV SCH (10:30)
[2021-11-22] MEDS ORDERED: AZIT500T66 PO (10:38)
[2021-11-22] MEDS ORDERED: ALBUAER3 IN (10:38)
[2021-11-22] MEDS ORDERED: LEVO500T31 PO (10:38)
[2021-11-22] MEDS ORDERED: ALBU0.084 NEB (11:37)
[2021-11-22] MEDS ORDERED: clonazePAM 0.5 MG TAB PO ONE (11:45)
[2021-11-22 12:22] VITALS: BP 124/61
[2021-11-22 12:40] VITALS: BP 131/78
== END 2021-11-22 17:19 | disposition home or self-care (01) | DRG 720 ==
LOC: ER 17:52 → EDBD 17:52 → TELE 11-18 01:09 → TELE-EAST 11-18 15:45
PROVIDERS: ADMIT Nurse Practitioner; ATTEND Family Medicine
DX: A41.9 Sepsis, unspecified organism (principal); G93.41 Metabolic encephalopathy; J18.9 Pneumonia, unspecified organism; L03.116 Cellulitis of left lower limb; N39.0 Urinary tract infection, site not specified; E66.9 Obesity, unspecified; E03.9 Hypothyroidism, unspecified; E11.9 Type 2 diabetes mellitus without complications; E78.00 Pure hypercholesterolemia, unspecified; F32.A Depression, unspecified; G62.9 Polyneuropathy, unspecified; N31.9 Neuromuscular dysfunction of bladder, unspecified; N28.9 Disorder of kidney and ureter, unspecified; R55 Syncope and collapse; R79.89 Other specified abnormal findings of blood chemistry; Z99.3 Dependence on wheelchair; R61 Generalized hyperhidrosis; I10 Essential (primary) hypertension; Z20.822 Contact with and (suspected) exposure to COVID-19; Z80.0 Family history of malignant neoplasm of digestive organs; Z82.0 Family history of epilepsy and other diseases of the nervous system; Z82.3 Family history of stroke; Z82.49 Family history of ischemic heart disease and other diseases of the circulatory system; Z68.41 Body mass index [BMI] 40.0-44.9, adult
CPT/HCPCS: 36415; 36600; 70450; 70551; 71045; 80053; 80307; 81001; 82805; 82962; 83605; 83735; 84443; 84484; 85025; 87040; 87086; 93005; 93306; 93886; 93925; 95819; 96365; 96366; 96367; 96372; 96375; 97163; G0378; J0696; J1815; J2405

== ENCOUNTER 2022-03-12 12:26 | Inpatient (IN) | payer MEDICARE, MEDICAID ==
[~2022-03-12] VITALS: Ht 172.7 cm; Wt 113.4 kg
[~2022-03-12 12:26] MED LIST changes: +ALBU0.084 NEB; +ALBUAER3 IN; +AZIT500T66 PO
[2022-03-12] MEDS ORDERED: SODIUM CHLORIDE 0.9% 1,000 ML IV ONE (13:00)
[2022-03-12 13:22] LABS: Basophils # (auto) 0 10 ^3/uL (0-0.2); Basophils % (auto) 0.2 % (0.0-2.0); Eosinophils # (auto) 0.2 10 ^3/uL (0-0.8); Eosinophils % (auto) 2.2 % (0.0-7.0); Hematocrit 45.6 % (36.0-46.0); Hemoglobin 14.6 g/dL (12.2-16.2); Lymphocytes # (auto) 2.1 10 ^3/uL (0.4-5.4); Lymphocytes % (auto) 20.1 % (10.0-50.0); Mean Corpuscular Hemoglobin 30.5 pg (28.0-32.0); Mean Corpuscular Hgb Conc. 32.1 g/dL (32.0-36.0); Mean Corpuscular Volume 95.1 fL (80.0-100.0); Monocytes # (auto) 0.7 10 ^3/uL (0-1.3); Monocytes % (auto) 6.7 % (0.0-12.0); Neutrophils # (auto) 7.4 10 ^3/uL (1.6-8.6); Neutrophils % (auto) 70.8 % (37.0-80.0); Nucleated Red Blood Cells % 0.2 %; Red Cell Distribution Width 14.3 % (11.8-14.3); White Blood Cell 10.5 10^3/uL (4.4-10.8)
[2022-03-12 13:39] LABS: Albumin 3.3 g/dL (3.4-5.0); Magnesium 1.9 mg/dL (1.6-2.6); Potassium 4.8 mmol/L (3.5-5.1)
[2022-03-12 13:42] LABS: BUN/Creatinine Ratio 13.8; Bilirubin, Total 0.7 mg/dL (0.2-1.0); Total Protein 6.7 g/dL (6.4-8.2)
[2022-03-12 13:43] LABS: Lactic Acid w/Reflex 2.6 mmol/L (0.4-2.0)
[2022-03-12 13:49] LABS: Free T4 (Free Thyroxine) 1.28 ng/dL (0.89-1.76); T3 Total 0.95 ng/mL (0.60-1.81)
[2022-03-12 18:09] LABS: Urine Bacteria MANY /hpf (None Seen); Urine Blood Negative /uL (Negative); Urine Hyaline Cast MANY /lpf (0 - 2); Urine Mucus FEW (None Seen); Urine Specific Gravity 1.017 (1.001-1.035); Urine WBC 15 /hpf (0 - 5)
[2022-03-12] MEDS ORDERED: HYDROcodone-ACET 5/325MG TAB PO PRN (19:15)
[2022-03-12] MEDS ORDERED: DEXTROSE (50%) 50ML SYRG IV PRN (19:15)
[2022-03-12] MEDS ORDERED: ONDANSETRON HCL 4 MG/2 ML VIAL IV PRN (19:15)
[2022-03-12] MEDS ORDERED: MORPHINE SULFATE INJ 2 MG/ml SYRG IV PRN (19:15)
[2022-03-12] MEDS ORDERED: NITROGLYCERIN 0.4 MG SL TAB SL PRN (19:15)
[2022-03-12] MEDS ORDERED: ACETAMINOPHEN 325 MG TAB PO PRN (19:15)
[2022-03-12] MEDS ORDERED: DOCUSATE SOD 100 MG CAP PO PRN (19:15)
[2022-03-12] MEDS ORDERED: clonazePAM 0.5 MG TAB PO PRN (21:15)
[2022-03-12] MEDS ORDERED: traZODone HCL 50 MG TAB PO PRN (22:00)
[2022-03-12] MEDS: InsuLIN REG 1unit/0.01ml Soln (100units/ml) SC SCH (22:50)
[2022-03-12 23:15] VITALS: BP 118/70
[2022-03-12] MEDS: ACCU-CHEK COMFORT CURVE STRIP VI SCH (23:28)
[2022-03-12] MEDS ORDERED: DULA1INJ SC (23:31)
[2022-03-12] MEDS ORDERED: CHOL50007 PO (23:31)
[2022-03-13 05:00] VITALS: BP 121/68
[2022-03-13] MEDS: ACCU-CHEK COMFORT CURVE STRIP VI SCH ×2 (06:01→11:30)
[2022-03-13] MEDS: InsuLIN REG 1unit/0.01ml Soln (100units/ml) SC SCH ×2 (06:01→11:30)
[2022-03-13 06:47] LABS: Basophils # (auto) 0 10 ^3/uL (0-0.2); Basophils % (auto) 0.3 % (0.0-2.0); Eosinophils # (auto) 0.2 10 ^3/uL (0-0.8); Eosinophils % (auto) 2.2 % (0.0-7.0); Hematocrit 43.2 % (36.0-46.0); Hemoglobin 14.4 g/dL (12.2-16.2); Lymphocytes # (auto) 2.1 10 ^3/uL (0.4-5.4); Lymphocytes % (auto) 24.2 % (10.0-50.0); Mean Corpuscular Hemoglobin 31.4 pg (28.0-32.0); Mean Corpuscular Hgb Conc. 33.3 g/dL (32.0-36.0); Mean Corpuscular Volume 94.5 fL (80.0-100.0); Monocytes # (auto) 0.5 10 ^3/uL (0-1.3); Monocytes % (auto) 6.2 % (0.0-12.0); Neutrophils # (auto) 5.8 10 ^3/uL (1.6-8.6); Neutrophils % (auto) 67.1 % (37.0-80.0); Red Blood Cells 4.57 10^6/uL (4.0-5.20); Red Cell Distribution Width 13.9 % (11.8-14.3); White Blood Cell 8.7 10^3/uL (4.4-10.8)
[2022-03-13 06:54] LABS: Albumin 3.2 g/dL (3.4-5.0); Calcium 8.7 mg/dL (8.5-10.1); Magnesium 1.9 mg/dL (1.6-2.6); Potassium 4.3 mmol/L (3.5-5.1)
[2022-03-13 06:58] LABS: BUN/Creatinine Ratio 15.6; Bilirubin, Total 0.9 mg/dL (0.2-1.0); Total Protein 6.7 g/dL (6.4-8.2)
[2022-03-13] MEDS ORDERED: LEVOTHYROXINE SODIUM 25 MCG TAB PO SCH (07:00)
[2022-03-13] MEDS ORDERED: LEVOTHYROXINE SODIUM 100 MCG TAB PO SCH (07:00)
[2022-03-13 09:00] VITALS: BP_SYST 108; BP_SYST 144; BP_DIAS 57; BP_DIAS 69
[2022-03-13] MEDS ORDERED: FLUoxetine HCL 20 MG CAP PO SCH (10:00)
[2022-03-13] MEDS ORDERED: PANTOPRAZOLE 40 MG/10 ML VIAL INJ IV SCH (10:00)
[2022-03-13] MEDS ORDERED: ATORVASTATIN 20 MG TAB PO SCH (10:00)
[2022-03-13] MEDS ORDERED: cefTRIAXone 1GM/50ML D5W 50 ML IV ONE (12:00)
[2022-03-13] MEDS ORDERED: LORazepam 2MG/ML-1ML VIAL IV ONE (12:15)
[2022-03-13] MEDS ORDERED: clonazePAM 0.5 MG TAB PO SCH (12:17)
[2022-03-13 13:00] VITALS: BP 127/69
[2022-03-13] MEDS ORDERED: TAMSULOSIN HYDROCHLORIDE 0.4 MG CAP PO SCH (18:00)
[2022-03-13] MEDS ORDERED: LORazepam 2MG/ML-1ML VIAL IV SCH (20:15)
[2022-03-14] MEDS ORDERED: cefTRIAXone 1GM/50ML D5W 50 ML IV SCH (09:00)
== END 2022-03-13 16:05 | disposition left against medical advice (07) | DRG 463 ==
LOC: EDBD 12:26 → ER 12:26 → EDUNIT# 12:26 → TELE 19:10 → TELE-WESTW 22:50
PROVIDERS: ADMIT Nurse Practitioner Family; ATTEND Nurse Practitioner Family
DX: N39.0 Urinary tract infection, site not specified (principal); E44.0 Moderate protein-calorie malnutrition; I95.9 Hypotension, unspecified; E03.9 Hypothyroidism, unspecified; E11.9 Type 2 diabetes mellitus without complications; Z20.822 Contact with and (suspected) exposure to COVID-19; Z53.29 Procedure and treatment not carried out because of patient's decision for other reasons; E78.00 Pure hypercholesterolemia, unspecified; F32.A Depression, unspecified; I10 Essential (primary) hypertension; N31.9 Neuromuscular dysfunction of bladder, unspecified; Z68.38 Body mass index [BMI] 38.0-38.9, adult; Z80.0 Family history of malignant neoplasm of digestive organs; Z82.0 Family history of epilepsy and other diseases of the nervous system; Z82.3 Family history of stroke; Z82.49 Family history of ischemic heart disease and other diseases of the circulatory system; Z91.199 Patient's noncompliance with other medical treatment and regimen due to unspecified reason; Z79.84 Long term (current) use of oral hypoglycemic drugs
CPT/HCPCS: 36415; 70450; 71045; 80053; 81001; 82962; 83605; 83735; 83880; 84439; 84443; 84480; 84484; 85025; 87040; 87086; 87088; 87186; 87426; 93005; 96361; 96374; C9113; G0378; J0696

== ENCOUNTER 2022-06-19 18:12 | Inpatient (IN) | payer MEDICARE, MEDICAID ==
[~2022-06-19] VITALS: Ht 172.7 cm; Wt 11.1 kg
[~2022-06-19 18:12] MED LIST changes: +CHOL50007 PO; +DULA1INJ SC; -LEVO500T31 PO
[2022-06-19 20:00] LABS: Basophils # (auto) 0.1 10 ^3/uL (0-0.2); Basophils % (auto) 0.3 % (0.0-2.0); Eosinophils # (auto) 0.2 10 ^3/uL (0-0.8); Hematocrit 49.1 % (36.0-46.0); Hemoglobin 16.1 g/dL (12.2-16.2); Lymphocytes # (auto) 1.8 10 ^3/uL (0.4-5.4); Lymphocytes % (auto) 10.7 % (10.0-50.0); Mean Corpuscular Hemoglobin 30.6 pg (28.0-32.0); Mean Corpuscular Hgb Conc. 32.8 g/dL (32.0-36.0); Mean Corpuscular Volume 93.2 fL (80.0-100.0); Monocytes % (auto) 5.6 % (0.0-12.0); Neutrophils # (auto) 14.1 10 ^3/uL (1.6-8.6); Neutrophils % (auto) 82.4 % (37.0-80.0); Red Blood Cells 5.27 10^6/uL (4.0-5.20); Red Cell Distribution Width 14.2 % (11.8-14.3); White Blood Cell 17.2 10^3/uL (4.4-10.8)
[2022-06-19 20:23] LABS: Albumin 3.4 g/dL (3.4-5.0); BUN/Creatinine Ratio 21.3; Calcium 9.4 mg/dL (8.5-10.1); Potassium 4.6 mmol/L (3.5-5.1)
[2022-06-19 20:26] LABS: Bilirubin, Total 0.6 mg/dL (0.2-1.0); Lactic Acid w/Reflex 3.1 mmol/L (0.4-2.0); Total Protein 7.1 g/dL (6.4-8.2)
[2022-06-19] MEDS: SODIUM CHLORIDE 0.9% 1,000 ML IV SCH (20:45)
[2022-06-19] MEDS ORDERED: cefTRIAXone 1GM/50ML D5W 50 ML IV SCH (22:00)
[2022-06-19] MEDS ORDERED: AZITHROMYCIN 500MG/ 250ML 250 ML IV SCH (22:00)
[2022-06-19] MEDS ORDERED: DEXTROSE (50%) 50ML SYRG IV PRN (22:15)
[2022-06-19] MEDS ORDERED: ACETAMINOPHEN 325 MG TAB PO PRN (22:15)
[2022-06-19] MEDS ORDERED: ONDANSETRON HCL 4 MG/2 ML VIAL IV PRN (22:15)
[2022-06-19 22:21] LABS: Urine Bacteria NONE SEEN /hpf (None Seen); Urine Blood Negative /uL (Negative); Urine Hyaline Cast MOD /lpf (0 - 2); Urine Specific Gravity 1.015 (1.001-1.035); Urine WBC 2 /hpf (0 - 5)
[2022-06-19] MEDS ORDERED: NITROGLYCERIN 0.4 MG SL TAB SL PRN (22:45)
[2022-06-19] MEDS ORDERED: MORPHINE SULFATE INJ 2 MG/ml SYRG IV PRN (22:45)
[2022-06-20] MEDS: traZODone HCL 50 MG TAB PO SCH ×2 (00:05→22:21)
[2022-06-20] MEDS: SODIUM CHLORIDE 0.9% 1,000 ML IV SCH ×3 (01:02→09:47)
[2022-06-20 06:13] LABS: Basophils # (auto) 0 10 ^3/uL (0-0.2); Basophils % (auto) 0.3 % (0.0-2.0); Eosinophils # (auto) 0.2 10 ^3/uL (0-0.8); Eosinophils % (auto) 1.4 % (0.0-7.0); Hemoglobin 15.5 g/dL (12.2-16.2); Mean Corpuscular Hemoglobin 31.1 pg (28.0-32.0); Mean Corpuscular Volume 94.2 fL (80.0-100.0); Monocytes # (auto) 0.8 10 ^3/uL (0-1.3); Monocytes % (auto) 7.2 % (0.0-12.0); Neutrophils # (auto) 7.6 10 ^3/uL (1.6-8.6); Neutrophils % (auto) 72.1 % (37.0-80.0); Nucleated Red Blood Cells % 0.1 %; Red Blood Cells 4.99 10^6/uL (4.0-5.20); Red Cell Distribution Width 14.5 % (11.8-14.3); White Blood Cell 10.5 10^3/uL (4.4-10.8)
[2022-06-20 06:18] LABS: Albumin 3.3 g/dL (3.4-5.0); Calcium 8.8 mg/dL (8.5-10.1); Potassium 4.6 mmol/L (3.5-5.1)
[2022-06-20 06:21] LABS: BUN/Creatinine Ratio 17.9
[2022-06-20 06:25] LABS: Bilirubin, Total 0.5 mg/dL (0.2-1.0)
[2022-06-20] MEDS: ACCU-CHEK COMFORT CURVE STRIP VI SCH ×4 (07:00→22:00)
[2022-06-20] MEDS: InsuLIN REG 1unit/0.01ml Soln (100units/ml) SC SCH ×4 (07:00→22:00)
[2022-06-20] MEDS: ASPirin 81 mg TAB PO SCH (09:40)
[2022-06-20] MEDS: FAMOTIDINE (10MG/ML) 2ML VL IV SCH ×2 (09:40→22:20)
[2022-06-20] MEDS: MIDODRINE HCL 10 MG TAB PO SCH ×3 (10:02→18:38)
[2022-06-20] MEDS: LEVOTHYROXINE SODIUM 50 MCG TAB PO SCH (11:21)
[2022-06-20 17:30] VITALS: BP 115/53
[2022-06-20] MEDS ORDERED: LORazepam 2MG/ML-1ML VIAL IV PRN (17:30)
[2022-06-20 17:45] VITALS: BP 111/53
[2022-06-20] MEDS: TAMSULOSIN HYDROCHLORIDE 0.4 MG CAP PO SCH ×2 (18:00→18:38)
[2022-06-20 20:00] VITALS: BP 147/62
[2022-06-20] MEDS: cefTRIAXone 1GM/50ML D5W 50 ML IV SCH (21:15)
[2022-06-20 22:00] VITALS: BP 147/62
[2022-06-20] MEDS: AZITHROMYCIN 500MG/ 250ML 250 ML IV SCH (22:20)
[2022-06-20] MEDS: ATORVASTATIN 20 MG TAB PO SCH (22:21)
[2022-06-21 05:00] VITALS: BP 134/55
[2022-06-21] MEDS: MIDODRINE HCL 10 MG TAB PO SCH ×3 (06:00→17:37)
[2022-06-21] MEDS: ACCU-CHEK COMFORT CURVE STRIP VI SCH ×4 (06:29→22:29)
[2022-06-21] MEDS: LEVOTHYROXINE SODIUM 50 MCG TAB PO SCH (06:30)
[2022-06-21] MEDS: InsuLIN REG 1unit/0.01ml Soln (100units/ml) SC SCH ×4 (06:31→22:00)
[2022-06-21] MEDS: SODIUM CHLORIDE 0.9% 1,000 ML IV SCH ×2 (07:49→17:45)
[2022-06-21] MEDS: FAMOTIDINE (10MG/ML) 2ML VL IV SCH ×2 (08:55→22:28)
[2022-06-21] MEDS: ASPirin 81 mg TAB PO SCH (08:55)
[2022-06-21 09:05] VITALS: BP 124/61
[2022-06-21] MEDS ORDERED: HYDR1TAB97 PO (10:51)
[2022-06-21 13:00] VITALS: BP 110/66
[2022-06-21 17:00] VITALS: BP 137/69
[2022-06-21] MEDS: TAMSULOSIN HYDROCHLORIDE 0.4 MG CAP PO SCH (17:37)
[2022-06-21 20:00] VITALS: BP 154/76
[2022-06-21] MEDS: cefTRIAXone 1GM/50ML D5W 50 ML IV SCH (20:43)
[2022-06-21 22:00] VITALS: BP 158/76
[2022-06-21] MEDS: AZITHROMYCIN 500MG/ 250ML 250 ML IV SCH (22:29)
[2022-06-21] MEDS: traZODone HCL 50 MG TAB PO SCH (22:29)
[2022-06-21] MEDS: ATORVASTATIN 20 MG TAB PO SCH (22:29)
[2022-06-22] MEDS: LEVOTHYROXINE SODIUM 50 MCG TAB PO SCH (06:18)
[2022-06-22] MEDS: MIDODRINE HCL 10 MG TAB PO SCH ×3 (06:18→17:25)
[2022-06-22] MEDS: ACCU-CHEK COMFORT CURVE STRIP VI SCH ×4 (06:30→22:19)
[2022-06-22] MEDS: InsuLIN REG 1unit/0.01ml Soln (100units/ml) SC SCH ×4 (06:30→22:00)
[2022-06-22 08:00] VITALS: BP 153/75
[2022-06-22 08:43] VITALS: BP 118/56
[2022-06-22] MEDS: FAMOTIDINE (10MG/ML) 2ML VL IV SCH ×2 (09:19→22:05)
[2022-06-22] MEDS: ASPirin 81 mg TAB PO SCH (09:19)
[2022-06-22 12:58] VITALS: BP 153/75
[2022-06-22] MEDS: SODIUM CHLORIDE 0.9% 1,000 ML IV SCH (13:41)
[2022-06-22] MEDS: DOCUSATE SOD 100 MG CAP PO PRN ×2 (13:41→22:43)
[2022-06-22] MEDS: TAMSULOSIN HYDROCHLORIDE 0.4 MG CAP PO SCH (17:24)
[2022-06-22 20:00] VITALS: BP 150/75
[2022-06-22] MEDS: HYDROcodone-ACET 5/325MG TAB PO PRN (20:38)
[2022-06-22] MEDS: cefTRIAXone 1GM/50ML D5W 50 ML IV SCH (20:39)
[2022-06-22 22:00] VITALS: BP 150/75
[2022-06-22] MEDS: AZITHROMYCIN 500MG/ 250ML 250 ML IV SCH (22:05)
[2022-06-22] MEDS: traZODone HCL 50 MG TAB PO SCH (22:06)
[2022-06-22] MEDS: ATORVASTATIN 20 MG TAB PO SCH (22:06)
[2022-06-23 05:00] VITALS: BP 102/48
[2022-06-23] MEDS: MIDODRINE HCL 10 MG TAB PO SCH ×2 (05:44→12:00)
[2022-06-23] MEDS: ACCU-CHEK COMFORT CURVE STRIP VI SCH ×2 (06:10→11:22)
[2022-06-23] MEDS: LEVOTHYROXINE SODIUM 50 MCG TAB PO SCH (06:10)
[2022-06-23] MEDS: InsuLIN REG 1unit/0.01ml Soln (100units/ml) SC SCH ×2 (06:41→11:22)
[2022-06-23 08:30] VITALS: BP 130/62
[2022-06-23] MEDS: FAMOTIDINE (10MG/ML) 2ML VL IV SCH (09:10)
[2022-06-23] MEDS: ASPirin 81 mg TAB PO SCH (09:10)
[2022-06-23] MEDS: SODIUM CHLORIDE 0.9% 1,000 ML IV SCH (09:11)
[2022-06-23] MEDS: HYDROcodone-ACET 5/325MG TAB PO PRN (10:15)
[2022-06-23] MEDS ORDERED: BACDST PO (11:18)
[2022-06-23] MEDS ORDERED: MIDO10TA2 PO (11:18)
[2022-06-23 12:28] VITALS: BP 135/66
[2022-06-23 12:30] VITALS: BP 135/66
== END 2022-06-23 14:00 | disposition home or self-care (01) | DRG 720 ==
LOC: EDUNIT# 18:12 → EDBD 18:12 → ER 18:27 → TELE 22:35 → TELE-WESTW 06-20 17:25
PROVIDERS: ADMIT Nurse Practitioner Family; ATTEND Family Medicine
DX: A41.9 Sepsis, unspecified organism (principal); R65.21 Severe sepsis with septic shock; J18.9 Pneumonia, unspecified organism; E87.1 Hypo-osmolality and hyponatremia; N39.0 Urinary tract infection, site not specified; E03.9 Hypothyroidism, unspecified; E78.5 Hyperlipidemia, unspecified; F32.A Depression, unspecified; F41.9 Anxiety disorder, unspecified; M10.9 Gout, unspecified; Z20.822 Contact with and (suspected) exposure to COVID-19; R55 Syncope and collapse; Z53.20 Procedure and treatment not carried out because of patient's decision for unspecified reasons; Z80.0 Family history of malignant neoplasm of digestive organs; Z82.0 Family history of epilepsy and other diseases of the nervous system; Z82.3 Family history of stroke; Z82.49 Family history of ischemic heart disease and other diseases of the circulatory system; Z83.3 Family history of diabetes mellitus; Z87.440 Personal history of urinary (tract) infections
CPT/HCPCS: 36415; 51702; 71045; 80053; 81001; 82962; 83036; 83605; 83880; 84443; 84484; 85025; 87040; 87086; 87426; 93005; 93306; 93886; 93971; 95819; 96361; 96365; 96366; 96367; G0378; J0696; J2405; J3490